=== PATIENT | male | born 1995 | race Caucasian/White ===

== ENCOUNTER 2020-05-22 01:48 | Emergency (ER) | payer OTHER ==
[~2020-05-22] VITALS: Ht 182.9 cm; Wt 68.6 kg
[2020-05-22 01:50] VITALS: BP 130/83
--- NOTE | 2020-05-22 02:22 | NUR ---
PT AMB TO ROOM FROM LOBBY AT THIS TIME SLOW BUT STEADY GAIT
[2020-05-22 02:26] LABS: BASOPHILS % (AUTO) 1 % (0-1); EOSINOPHILS % (AUTO) 0 % (1-7); LYMPHOCYTES % (AUTO) 12 % (22-44); MEAN CORPUSCULAR HEMOGLOBIN 32.5 pg (27.5-34.5); MEAN CORPUSCULAR HGB CONC 34.5 g/dL (33.2-36.2); MEAN PLATELET VOLUME 8.4 fL (7.4-10.4); MONOCYTES % (AUTO) 16 % (2-9); NEUTROPHILS % (AUTO) 71 % (42-75); PLATELET COUNT 193 x10^3/uL (130-400); RED BLOOD COUNT 4.91 x10^6/uL (4.38-5.82); RED CELL DISTRIBUTION WIDTH 12.4 % (9.4-14.8)
[2020-05-22 02:27] LABS: MD NO
[2020-05-22] MEDS ORDERED: ONDANSETRON 2MG/ML, 2ML IVPush ONE ×2 (02:30→03:00)
[2020-05-22] MEDS ORDERED: SODIUM CHLORIDE 0.9% 1,000ML IVBOLUS ONE (02:30)
[2020-05-22] MEDS ORDERED: SODIUM CHLORIDE FLUSH 10ML SYR IVF ONE (02:30)
[2020-05-22 02:35] LABS: ALANINE AMINOTRANSFERASE 17 U/L (12-78); ALBUMIN 5.1 g/dL (3.4-5.0); ANION GAP 9 mmol/L (5-15); CALCIUM 9.7 mg/dL (8.5-10.1); CHLORIDE 102 mmol/L (98-107)
[2020-05-22 02:37] LABS: ALKALINE PHOSPHATASE 65 U/L (45-117); BILIRUBIN,TOTAL 0.8 mg/dL (0.2-1.0); TOTAL PROTEIN 8.8 g/dL (6.4-8.2)
[2020-05-22] MEDS ORDERED: HYDROmorphone 1 MG/ML, 1ML INJ ONE (02:56)
[2020-05-22] MEDS ORDERED: ONDANSETRON 2MG/ML, 2ML ONE (02:57)
[2020-05-22] MEDS ORDERED: HYDROmorphone 2 MG/ML, 1ML IVPush PRN (03:00)
--- NOTE | 2020-05-22 03:24 | NUR ---
Pt comes in with complaints of lower back pain/hip pain. Patient states that he was laying down when the pain started. Patient stated that it started a few hours [employer]. Patient was rolling all over the bed and unable to lay still, moving legs all over. Brother at bedside. IV established, VSS, bed in low position and call light within reach.
--- NOTE | 2020-05-22 03:26 | NUR ---
Rechecked on patient, patient noted to be laying still in bed, states he feels 100% better and playing on phone.
[2020-05-22 03:29] LABS: TROPONIN I < 0.015 ng/mL (0.000-0.045)
[2020-05-22 06:19] LABS: MICROSCOPIC NOT IND
== END 2020-05-22 07:15 | disposition home or self-care (01) ==
LOC: ED 06:50
DX: M54.5 Low back pain (principal); M54.6 Pain in thoracic spine; R00.0 Tachycardia, unspecified; M79.10 Myalgia, unspecified site
CPT/HCPCS: 36415; 71045; 80053; 81003; 83690; 84484; 85025; 85379; 93005; 96361; 96374; 99285; J2405; J7030